=== PATIENT | male | born 1945 | race Caucasian/White ===

== ENCOUNTER 2023-01-27 06:35 | Day surgery (SDC) | payer OTHER ==
[~2023-01-27 06:35] MED LIST: LEVSIN0.125 MG PO; PERCOCET 5/3251 TAB PO; ZANTAC300 MG PO; ZOFRAN4 MG PO
== END 2023-01-27 14:35 | disposition home or self-care (01) ==
LOC: AMB-ENDOS 06:35
PROVIDERS: ATTEND Surgery
DX: D12.4 Benign neoplasm of descending colon (principal); D12.3 Benign neoplasm of transverse colon; R19.5 Other fecal abnormalities; K64.8 Other hemorrhoids; K57.30 Diverticulosis of large intestine without perforation or abscess without bleeding; Z20.822 Contact with and (suspected) exposure to COVID-19